=== PATIENT | female | born 1995 | race Hispanic/Latino ===

== ENCOUNTER 2021-01-02 17:59 | Emergency (ER) | payer OTHER ==
[~2021-01-02] VITALS: Ht 152.4 cm; Wt 63.8 kg
[2021-01-02] MEDS ORDERED: CEFDINIR300 MG PO (19:09)
[2021-01-02] MEDS ORDERED: CORTISPORIN-TC10 M1 LEFT EAR (19:09)
== END 2021-01-02 20:13 | disposition home or self-care (01) ==
LOC: FSED 19:00
DX: H66.92 Otitis media, unspecified, left ear (principal); J20.9 Acute bronchitis, unspecified; R05.9 Cough, unspecified
CPT/HCPCS: 81003; 81025; 83518; 87400; 99283